=== PATIENT | male | born 1955 | race Caucasian/White ===

== ENCOUNTER 2022-06-29 19:06 | Emergency (ER) | payer MEDICARE, OTHER ==
[2022-06-29 19:29] VITALS: BP 142/75
--- NOTE | 2022-06-29 19:41 | ERPHSYRPT ---
- History of Present Illness Time Seen by Provider: 06/29/22 19:09 Source: patient Exam Limitations: no limitations Patient Subjective Stated Complaint: pt states "I was playing with the dog and a stick hit my hand." Triage Nursing Assessment: pt ambulated into the er; pt is axo x4; c/o rt hand injury; pt states 4/10 pain to rt hand; swelling present to dorsal rt hand; multiple abrasions to rt hand; strong rt radial pulse; good cap refill to RUE; hypertension Physician History: 67-year-old right-handed dominant male presented in the ER after he was playing with a stick and a dog and accidentally stick hit the right hand dorsum at third metacarpal phalangeal joint area around noon time. Patient think there was a probably a thorn in the steak. Since then having gradually increasing swelling with moderate intensity sharp pain with palpation and movements at metacarpophalangeal joint. Occurred: this afternoon Method of Injury: direct blow Quality: sharpness Severity of Pain-Max: moderate Severity of Pain-Current: moderate Extremities Pain Location: hand: right Modifying Factors: Improves With: immobilization. Worsens With: movement Associated Symptoms: none Allergies/Adverse Reactions: No Known Drug Allergies Allergy (Unverified 06/29/22 19:18) Hx Tetanus, Diphtheria Vaccination/Date Given: No (unsure) Hx Influenza Vaccination/Date Given: Yes Hx Pneumococcal Vaccination/Date Given: Yes Immunizations Up to Date: Yes Travel Risk - International Travel Have you traveled outside of the country in past 3 weeks: No - Coronavirus Screening Are you exhibiting any of the following symptoms?: No Close contact with a COVID-19 positive Pt in past 14-21 Days: No - Vaccine Status Have you recieved a Covid-19 vaccination: Yes 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 - Vaccination Dates Date of 2cond Vaccination (if applicable): 01/25 - Review of Systems Constitutional: No Symptoms Eyes: No Symptoms Ears, Nose, & Throat: No Symptoms Respiratory: No Symptoms Cardiac: No Symptoms Abdominal/Gastrointestinal: No Symptoms Genitourinary Symptoms: No Symptoms Musculoskeletal: Injury, Joint Redness, Joint Pain, Joint Swelling Skin: No Symptoms Neurological: No Symptoms Hematologic/Lymphatic: No Symptoms Immunological/Allergic: No Symptoms - Past Medical History Pertinent Past Medical History: Yes Neurological History: No Pertinent History ENT History: No Pertinent History Cardiac History: Arrhythmia, Coronary Artery Disease, High Cholesterol, Hypertension Respiratory History: Emphysema Endocrine Medical History: No Pertinent History Musculoskeletal History: No Pertinent History GI Medical History: GERD History: No Pertinent History Psycho-Social History: No Pertinent History Male Reproductive Disorders: No Pertinent History - Past Surgical History Past Surgical History: Yes Neuro Surgical History: No Pertinent History Cardiac: Cardiac Stent Respiratory: No Pertinent History Gastrointestinal: Cholecystectomy Genitourinary: No Pertinent History Musculoskeletal: No Pertinent History Male Surgical History: No Pertinent History - Social History Smoking Status: Current every day smoker How long have you smoked: 45 Exposure to second hand smoke: Yes Drug Use: none Patient Lives Alone: No - Nursing Vital Signs Nursing Vital Signs: Initial Vital Signs Temperature 97.7 F 06/29/22 19:18 Pulse Rate 52 L 06/29/22 19:18 Respiratory Rate 14 06/29/22 19:18 Blood Pressure 142/75 06/29/22 19:18 O2 Sat by Pulse Oximetry 97 06/29/22 19:18 Pain Scale Pain Intensity 4 - Physical Exam General Appearance: no apparent distress, alert Neck Exam: normal inspection, full range of motion Cardiovascular/Respiratory Exam: normal breath sounds, regular rate/rhythm Wrist Exam: normal inspection, non-tender, no evidence of injury, normal ROM Hand Exam: bone tenderness (Third metacarpal phalangeal joint area with swelling and superficial skin tear), limited ROM, soft tissue tenderness, swelling Neuro/Tendon Exam: normal sensation, normal motor functions Mental Status Exam: alert, oriented x 3, cooperative Skin Exam: normal color SpO2 Interpretation: normal SpO2: 97 O2 Delivery: Room Air Ordered Tests: Active Orders 24 hr Category Date Time Status HAND (MINIMUM 3 VIEWS) Stat Exams 06/29/22 Taken - Progress Progress: improved, pain not gone completely, re-examined Progress Note: 06/29/22 20:14 Patient is up-to-date with tetanus. X-rays negative for acute fracture dislocation. No obvious foreign body. Patient has remarkable tenderness. Mateus wrap applied. Since there was not a puncture wound, patient is started on cephalexin outpatient follow-up recommended. 06/29/22 20:15 Counseled pt/family regarding: diagnosis, need for follow-up, rad results - Departure Departure Disposition: Home Clinical Impression: Hand abrasion, infected Condition: Stable Critical Care Time: No Referrals: YURI VALDES NP [Primary Care Provider] - Follow Up with PCP/3 days Instructions: Cellulitis (Skin Infection), Adult ED Additional Instructions: Take Tylenol as needed for pain. Follow-up with primary care for reevaluation. Intermittent ice application, elevation, Mateus wrap. Return to ER for increasing swelling pain, difficulty movements of finger, fever chills etc. Prescriptions: Cephalexin Mh 500 mg [Keflex 500 mg] 500 mg PO TID #21 cap
[2022-06-29] MEDS ORDERED: NORCO 5/325 MG PO ONE ×2 (20:13→20:17)
[2022-06-29] MEDS ORDERED: KEFLEX 500 MG PO ONE (20:16)
[2022-06-29] MEDS ORDERED: NORCO 5/325 MG ONE ×2 (20:17→20:19)
[2022-06-29] MEDS ORDERED: KEFLEX 500 MG ONE (20:19)
--- NOTE | 2022-06-29 20:36 | XRAY ---
Indication: Pain and swelling following injury. Comparison: None 3 view right hand demonstrate mild osteopenia, minimal degenerative changes all IP joints, tiny 4th middle phalanx bone island, small 4th metacarpal head bony exostosis, and minimal posterior soft tissue swelling. No other bony, articular, or soft tissue abnormalities.
[2022-06-29 20:38] VITALS: PULSE 56; O2SAT 98
== END 2022-06-29 20:38 | disposition home or self-care (01) ==
LOC: ED 19:06
DX: S60.511A Abrasion of right hand, initial encounter (principal); W20.8XXA Other cause of strike by thrown, projected or falling object, initial encounter; E78.5 Hyperlipidemia, unspecified; I10 Essential (primary) hypertension; J43.9 Emphysema, unspecified; Z72.0 Tobacco use
CPT/HCPCS: 73130; 99283; A9270-GY